=== PATIENT | female | born 1990 | race Caucasian/White ===

== ENCOUNTER 2017-11-22 10:45 | Emergency (ER) | payer OTHER ==
[~2017-11-22] VITALS: Ht 175.3 cm; Wt 63.5 kg
[~2017-11-22 10:45] MED LIST: ACYCLOVIR200 MG PO; NORCO 5-325 TA1 EACH PO; PENICILLIN V P250 MG PO; PENICILLIN125 MG/5 M; PRENATAL 19 TA1 EACH PO; TYLENOL EXTRA500 MG PO; VITAFOL-OB+DHA1 EACH MT
== END 2017-11-22 11:01 | disposition home or self-care (01) ==
LOC: ED 10:45
DX: S61.411A Laceration without foreign body of right hand, initial encounter (principal); F17.200 Nicotine dependence, unspecified, uncomplicated; W45.8XXA Other foreign body or object entering through skin, initial encounter

== ENCOUNTER 2019-04-14 00:01 | Inpatient (IN) | payer OTHER ==
[~2019-04-14] VITALS: Ht 175.3 cm; Wt 75.0 kg
[2019-04-14] MEDS ORDERED: VITAFOL-OB+DHA1 EACH PO (00:46)
--- NOTE | 2019-04-15 12:01 | PR ---
[facility] [address] [facility] [place] [address] Signed PP Progress Notes Datetime Report Generated by CPN: 04/15/2019 12:01 SUBJECTIVE: [id number] Pain: Within normal limits Nausea/Vomiting: Denies Vital Signs: [id number] Vital Signs: Reviewed; Within Normal Limits Notable Details: PP Hgb/Hct = 10.6/32.5 EXAM: [id number] Abdomen/Uterus: Normal Lochia: Normal Extremities: Normal IMPRESSION/PLAN/PROCEDURES: [id number] Impression: Normal progression Plan: Discharge Procedures: None Progress Notes: Doing well, wants to go home. Signing Physician: Vera Floyd MD Copies: ~ *Electronically Signed* 04/15/19 1201 VERA FLOYD MD PATIENT NAME: ANGELINE THURMAN PROGRESS NOTE DATE OF : 90 PHYSICIAN: VERA FLOYD MD RPT #: [id number] REPORT IS CONFIDENTIAL AND NOT TO BE RELEASED WITHOUT AUTHORIZATION
== END 2019-04-15 12:35 | disposition home or self-care (01) | DRG 807 ==
LOC: FBCO 00:01 → FBC 00:04
PROVIDERS: ADMIT General Practice
PROC: 10E0XZZ Delivery of Products of Conception, External Approach (ICD-10-PCS; principal; 2019-04-14)
PROC: 10907ZC Drainage of Amniotic Fluid, Therapeutic from Products of Conception, Via Natural or Artificial Opening (ICD-10-PCS; 2019-04-14)
PROC: 3E0P7VZ Introduction of Hormone into Female Reproductive, Via Natural or Artificial Opening (ICD-10-PCS; 2019-04-14)
DX: O99.334 Smoking (tobacco) complicating childbirth (principal); Z37.0 Single live birth; F17.210 Nicotine dependence, cigarettes, uncomplicated; Z3A.39 39 weeks gestation of pregnancy
CPT/HCPCS: 36415; 85027; A9270; J2590; J2795; J3010; J7121

== ENCOUNTER 2019-05-11 17:34 | Emergency (ER) | payer OTHER ==
[~2019-05-11] VITALS: Ht 175.3 cm; Wt 74.4 kg
[~2019-05-11 17:34] MED LIST changes: +VITAFOL-OB+DHA1 EACH PO
[2019-05-11] MEDS ORDERED: ADVIL200 MG PO (17:56)
== END 2019-05-11 19:52 | disposition home or self-care (01) ==
LOC: ED 17:34
DX: J06.9 Acute upper respiratory infection, unspecified (principal); F17.200 Nicotine dependence, unspecified, uncomplicated
CPT/HCPCS: 87502; 99283

== ENCOUNTER 2021-12-10 20:02 | Emergency (ER) | payer OTHER ==
[~2021-12-10] VITALS: Ht 175.3 cm; Wt 68.0 kg
[~2021-12-10 20:02] MED LIST changes: +ADVIL200 MG PO
[2021-12-10] MEDS ORDERED: DOXYCYCLINE HY100 MG PO (20:54)
== END 2021-12-10 21:11 | disposition home or self-care (01) ==
LOC: ED 20:02
DX: L02.511 Cutaneous abscess of right hand (principal); F17.200 Nicotine dependence, unspecified, uncomplicated
CPT/HCPCS: 26010; 99283-25; A9270

== ENCOUNTER 2023-01-30 15:36 | Emergency (ER) | payer OTHER ==
[~2023-01-30] VITALS: Ht 175.3 cm; Wt 69.7 kg
--- OUTSIDE RECORDS SUMMARY | ~2023-01-30 | XMS | Continuity of Care Document ---
Demographics + + + | Address | [address] | | | [place] [address] | + + + | Preferred Language | Unknown | + + + | Marital Status | | + + + | Catholic Affiliation | Unknown | + + + | Race | White | + + + | Ethnic Group | Not or | + + + Author + + + | Author | [facility] | + + + | Organization | [facility] | + + + | Address | [address] | | | [place], [place] [address] | + + + | Phone | | + + + Care Team Providers + + + + | Care Wood Drilling Machine Operator Name | Role | Phone | + + + + Unavailable | Unavailable | + + + + Unavailable | Unavailable | + + + + Allergies No information. Encounters No information. Functional Status No information. Immunizations No information. Medications + + + + | date | description | facility | + + + + | 2021-12-10 00:00 | DOXYCYCLINE HYCLATE | [facility] | + + + + | 2021-12-19 00:00 | ACYCLOVIR | [facility] | + + + + | 2021-12-19 00:00 | ACETAMINOPHEN | [facility] | + + + + | 2021-12-19 00:00 | PENICILLIN V POTASSIUM | [facility] | + + + + | 2013-12-21 00:00 | PENICILLIN V POTASSIUM | [facility] | + + + + | 2013-12-21 00:00 | HYDROCODONE | [facility] | | | BIT/ACETAMINOPHEN | | + + + + Problems + + + + | date | description | facility | + + + + | 2014-11-28 00:00 | Alcoholic intoxication | [facility] | + + + + | 2015-05-23 00:00 | Left ear pain | [facility] | + + + + | 2017-11-22 00:00 | Encounter for medical | [facility] | | | screening examination | | + + + + | 2021-12-10 00:00 | Abscess of right middle | [facility] | | | finger | | + + + + Procedures No information. Results/Labs No information. Social History No information. Vital Signs + + + +---------+ | date | measurement | value | units | + + + +---------+ | 2021-12-10 00:00 | BMI | 22.2 | kg/m2 | + + + +---------+ | 2021-12-10 00:00 | BP_diastolic | 74 | mmHg | + + + +---------+ | 2021-12-10 00:00 | BP_systolic | 107 | mmHg | + + + +---------+ | 2021-12-10 00:00 | heart_rate | 69 | /min | + + + +---------+ | 2021-12-10 00:00 | height_metric | 175.26 | cm | + + + +---------+ | 2021-12-10 00:00 | height_standard | 69 | in | + + + +---------+ | 2021-12-10 00:00 | o2_saturation | 100 | % | + + + +---------+ | 2021-12-10 00:00 | respiration_rate | 16 | /min | + + + +---------+ | 2021-12-10 00:00 | temperature_metric | 36.94 | C | | | | | | + + + +---------+ | 2021-12-10 00:00 | | 98.5 | F | | | temperature_standar | | | | | d | | | + + + +---------+ | 2021-12-10 00:00 | weight_metric | 68.04 | kg | + + + +---------+ | 2021-12-10 00:00 | weight_standard | 150 | lb | + + + +---------+"
--- OUTSIDE RECORDS SUMMARY | ~2023-01-30 | XMS | Continuity of Care Document ---
Demographics + + + | Address | [address] | | | [place] [address] | + + + | Preferred Language | Unknown | + + + | Marital Status | | + + + | Catholic Affiliation | Unknown | + + + | Race | White | + + + | Ethnic Group | Not or | + + + Author + + + | Author | [facility] | + + + | Organization | [facility] | + + + | Address | [address] | | | [place], [place] [address] | + + + | Phone | | + + + Care Team Providers + + + + | Care Concrete Placement Equipment Operator Name | Role | Phone | + + + + Unavailable | Unavailable | + + + + Unavailable | Unavailable | + + + + Allergies No information. Encounters No information. Functional Status No information. Immunizations No information. Medications + + + + | date | description | facility | + + + + | 2021-12-10 00:00 | DOXYCYCLINE HYCLATE | [facility] | + + + + | 2021-12-19 00:00 | ACYCLOVIR | [facility] | + + + + | 2021-12-19 00:00 | ACETAMINOPHEN | [facility] | + + + + | 2021-12-19 00:00 | PENICILLIN V POTASSIUM | [facility] | + + + + | 2013-12-21 00:00 | PENICILLIN V POTASSIUM | [facility] | + + + + | 2013-12-21 00:00 | HYDROCODONE | [facility] | | | BIT/ACETAMINOPHEN | | + + + + Problems + + + + | date | description | facility | + + + + | 2014-11-28 00:00 | Alcoholic intoxication | [facility] | + + + + | 2015-05-23 00:00 | Left ear pain | [facility] | + + + + | 2017-11-22 00:00 | Encounter for medical | [facility] | | | screening examination | | + + + + | 2021-12-10 00:00 | Abscess of right middle | [facility] | | | finger | | + [...]
[~2023-01-30 15:36] MED LIST changes: +DOXYCYCLINE HY100 MG PO
[2023-01-30] MEDS ORDERED: LAMICTAL25 MG PO (15:56)
[2023-01-30] MEDS ORDERED: BUSPIRONE HCL15 MG PO (15:56)
[2023-01-30] MEDS ORDERED: CLONIDINE HCL0.2 MG PO (15:56)
[2023-01-30] MEDS ORDERED: PREDNISONE20 MG PO (16:28)
[2023-01-30] MEDS ORDERED: CYCLOBENZAPRINE10 MG PO (16:28)
[2023-01-30 16:38] VITALS: BP 113/71
== END 2023-01-30 16:39 | disposition home or self-care (01) ==
LOC: ED 15:36
DX: S39.012A Strain of muscle, fascia and tendon of lower back, initial encounter (principal); F17.200 Nicotine dependence, unspecified, uncomplicated; X50.0XXA Overexertion from strenuous movement or load, initial encounter; Z79.899 Other long term (current) drug therapy
CPT/HCPCS: 99283

== ENCOUNTER 2023-06-01 15:53 | Emergency (ER) | payer OTHER ==
[~2023-06-01] VITALS: Ht 175.3 cm; Wt 70.9 kg
[~2023-06-01 15:53] MED LIST changes: +BUSPIRONE HCL15 MG PO; +CLONIDINE HCL0.2 MG PO; +CYCLOBENZAPRINE10 MG PO; +LAMICTAL25 MG PO; +PREDNISONE20 MG PO
--- OUTSIDE RECORDS SUMMARY | 2023-06-01 16:00 | XMS ---
PreManage Notification: ANGELINE THURMAN Security Rn Advice Events No recent Security Events currently on file CRITERIA MET - [facility] - 2 Visits in 30 Days CARE PROVIDERS -[place]- Dentist: [facility] PHONE: [phone] [facility] has no Care Guidelines for this patient. Jalen VISIT COUNT (12 MO.) 3 [facility] TOTAL 3 NOTE: Visits indicate total known visits. 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
[2023-06-01 17:09] LABS: BILIRUBIN, URINE NEGATIVE (negative); BLOOD/HGB, URINE TRACE-L (Negative); KETONE, URINE NEGATIVE (Negative); LEUK ESTERASE, URINE NEGATIVE (negative); NITRITE, URINE NEGATIVE (negative)
[2023-06-01 17:18] LABS: BACTERIA, URINE 1+ /hpf (negative); EPITHELIAL CELLS, URINE SQUAMOUS 4+ /lpf (0-1+); WHITE BLOOD CELLS, URINE 0-1 /HPF (0-5)
[2023-06-01 17:19] LABS: REFLEX CULTURE, URINE No (No)
[2023-06-01 17:42] LABS: AMPHETAMINES, URINE POSITIVE (NEGATIVE); BARBITURATES, URINE NEGATIVE (NEGATIVE); BENZODIAZEPINE, URINE NEGATIVE (NEGATIVE); BUPRENORPHINE, URINE NEGATIVE (NEGATIVE); CANNABINOID, URINE POSITIVE (NEGATIVE); COCAINE, URINE NEGATIVE (NEGATIVE); ECSTASY, URINE POSITIVE (NEGATIVE); FENTANYL, URINE NEGATIVE (NEGATIVE); METHADONE, URINE NEGATIVE (NEGATIVE); OPIATES, URINE NEGATIVE (NEGATIVE); OXYCODONE, URINE NEGATIVE (NEGATIVE); PHENCYCLIDINE, URINE NEGATIVE (NEGATIVE)
[2023-06-01 18:34] VITALS: BP 108/75
== END 2023-06-01 18:35 | disposition home or self-care (01) ==
LOC: ED 15:53
PROVIDERS: Emergency Medicine
DX: T40.711A Poisoning by cannabis, accidental (unintentional), initial encounter (principal); T43.621A Poisoning by amphetamines, accidental (unintentional), initial encounter; T43.641A Poisoning by ecstasy, accidental (unintentional), initial encounter; F17.200 Nicotine dependence, unspecified, uncomplicated; Z79.899 Other long term (current) drug therapy
CPT/HCPCS: 80307; 81001; 99284

== ENCOUNTER 2024-05-11 16:40 | Emergency (ER) | payer OTHER ==
[~2024-05-11] VITALS: Ht 175.3 cm; Wt 78.0 kg
[2024-05-11] MEDS ORDERED: BUPROPION XL150 MG PO (16:52)
[2024-05-11] MEDS ORDERED: ARIPIPRAZOLE5 MG PO (16:52)
[2024-05-11] MEDS ORDERED: NALTREXONE HCL50 MG PO (16:52)
[2024-05-11] MEDS ORDERED: VITAMIN D3125 MCG PO (16:53)
[2024-05-11 17:43] LABS: BASOPHILS 0.6 % (0-2); EOSINOPHILS 4.4 % (0-6); HEMATOCRIT 37.2 % (35.0-50.0); HEMOGLOBIN 12.6 g/dL (12.0-18.0); LYMPHOCYTES 37.2 % (24-44); MCH 29.1 (27-36); MCHC 33.8 g/dl (30-36); MONOCYTES 6.7 % (0-12); NEUTROPHILS 51.1 % (39-80); PLATELET COUNT 247 K/uL (140-440); RBC 4.32 M/ul (4.3-5.7); RDW 13.6 (10.5-15.0)
[2024-05-11 17:51] LABS: ANION GAP 13.1 (7-21); BUN/CREATININE RATIO 7.6 (6.0-28.6); CALCIUM 8.6 mg/dL (8.5-10.1); CREATININE, SERUM 0.92 mg/dL (0.55-1.02); POTASSIUM 4.1 mmol/L (3.5-5.1)
[2024-05-11 18:06] LABS: BILIRUBIN, URINE NEGATIVE (negative); BLOOD/HGB, URINE LARGE (Negative); KETONE, URINE NEGATIVE (Negative); LEUK ESTERASE, URINE NEGATIVE (negative); NITRITE, URINE NEGATIVE (negative)
[2024-05-11 18:11] LABS: EPITHELIAL CELLS, URINE SQUAMOUS 1+ /lpf (0-1+); RED BLOOD CELLS, URINE 41-50 /hpf (0-5)
[2024-05-11 18:12] LABS: BACTERIA, URINE NONE SEEN /hpf (negative); CASTS, URINE NONE SEEN \\lpf; COLLECTION TYPE, URINE CLEAN CATCH; CRYSTALS, URINE NONE SEEN (0-1+); REFLEX CULTURE, URINE No (No)
[2024-05-11] MEDS ORDERED: LIDOCAINE 2% VISCOUS 6 ML SYR TOP ONE (18:30)
[2024-05-11 18:34] VITALS: BP 101/66
[2024-05-11 19:32] LABS: N. GONORRRHOEAE BY PCR NOT DETECTED (NOT DETECT)
== END 2024-05-11 18:35 | disposition home or self-care (01) ==
LOC: ED 16:40
PROVIDERS: Emergency Medicine
DX: N92.1 Excessive and frequent menstruation with irregular cycle (principal); Z97.5 Presence of (intrauterine) contraceptive device; F17.200 Nicotine dependence, unspecified, uncomplicated; Z79.899 Other long term (current) drug therapy
CPT/HCPCS: 36415; 80048; 81001; 84703; 85025; 99284

== ENCOUNTER 2024-07-05 10:57 | Emergency (ER) | payer OTHER ==
[~2024-07-05] VITALS: Ht 175.3 cm; Wt 73.0 kg
[~2024-07-05 10:57] MED LIST changes: +ARIPIPRAZOLE5 MG PO; +BUPROPION XL150 MG PO; +NALTREXONE HCL50 MG PO; +VITAMIN D3125 MCG PO
[2024-07-05] MEDS ORDERED: SERTRALINE HCL100 MG PO (11:08)
[2024-07-05 11:24] LABS: BASOPHILS 0.9 % (0-2); EOSINOPHILS 3.3 % (0-6); HEMATOCRIT 36.7 % (35.0-50.0); HEMOGLOBIN 12.3 g/dL (12.0-18.0); LYMPHOCYTES 36.3 % (24-44); MCH 28.9 (27-36); MCHC 33.6 g/dl (30-36); MONOCYTES 6.9 % (0-12); NEUTROPHILS 52.6 % (39-80); PLATELET COUNT 228 K/uL (140-440); RBC 4.27 M/ul (4.3-5.7); RDW 13.9 (10.5-15.0)
[2024-07-05 11:43] LABS: ALBUMIN 3.6 g/dL (3.4-5.0); ALBUMIN/GLOBULIN RATIO 1.06 (1.1-2.4); ANION GAP 9.9 (7-21); BILIRUBIN, TOTAL 0.2 ng/dL (0.2-1.0); BUN/CREATININE RATIO 11.68 (6.0-28.6); CALCIUM 8.8 mg/dL (8.5-10.1); CREATININE, SERUM 0.77 mg/dL (0.55-1.02); POTASSIUM 3.9 mmol/L (3.5-5.1)
[2024-07-05 12:45] LABS: BILIRUBIN, URINE NEGATIVE (negative); BLOOD/HGB, URINE LARGE (Negative); KETONE, URINE NEGATIVE (Negative); LEUK ESTERASE, URINE NEGATIVE (negative); NITRITE, URINE NEGATIVE (negative); PH, URINE 7.5 (5-7)
[2024-07-05 12:53] LABS: EPITHELIAL CELLS, URINE SQUAMOUS 2+ /lpf (0-1+)
[2024-07-05 12:54] LABS: BACTERIA, URINE RARE /hpf (negative); CASTS, URINE NONE SEEN \\lpf; COLLECTION TYPE, URINE CLEAN CATCH; CRYSTALS, URINE NONE SEEN (0-1+); REFLEX CULTURE, URINE No (No); WHITE BLOOD CELLS, URINE 0-1 /HPF (0-5)
[2024-07-05 13:15] VITALS: BP 100/70
== END 2024-07-05 13:15 | disposition home or self-care (01) ==
LOC: ED 10:57
PROVIDERS: Emergency Medicine
DX: N93.9 Abnormal uterine and vaginal bleeding, unspecified (principal); F17.200 Nicotine dependence, unspecified, uncomplicated; Z79.899 Other long term (current) drug therapy
CPT/HCPCS: 36415; 76801; 76817; 80053; 81001; 84702; 85025; 99284